=== PATIENT | male | born 1960 | race Caucasian/White ===

== ENCOUNTER 2024-04-22 21:21 | Inpatient (IN) ==
[2024-04-22] MEDS: 0.9 % SODIUM CHLORIDE 1,000 ML IV ONE (21:36)
[2024-04-22 22:17] LABS: Basophils # (Auto) 0.02 K/mcL (0.00-0.30); Basophils % (Auto) 0.2 % (0.0-2.0); Eosinophils # (Auto) 0.03 K/mcL (0.00-0.70); Eosinophils % (Auto) 0.3 % (0.0-7.0); Hematocrit 34.5 % (40.1-51.0); Hemoglobin 11.7 g/dL (13.7-17.5); Lymphocytes # (Auto) 1.44 K/mcL (1.50-4.80); Lymphocytes % (Auto) 14.8 % (15.5-49.0); Mean Cell Volume 97.2 fL (80.0-100.0); Mean Corpuscular HGB Conc 33.9 g/dL (31.0-36.0); Mean Platelet Volume 10.4 fL (8.8-12.5); Monocytes # (Auto) 1.65 K/mcL (0.10-0.90); Monocytes % (Auto) 16.9 % (1.0-12.0); Neutrophils % (Auto) 67.6 % (38.0-78.0); Platelet Count 176 K/mcL (140-440); RBC 3.55 M/mcL (4.63-6.08); WBC 9.8 K/mcL (4.5-11.0)
[2024-04-22 22:20] LABS: ALT/SGPT 8 U/L (<40); AST/SGOT 26 U/L (<40); Albumin 3.4 gm/dL (3.2-5.2); Albumin/Globulin Ratio 1.4 (1.0-2.3); Alkaline Phosphatase 51 U/L (39-117); Bilirubin,Total 0.7 mg/dL (0.1-1.0); Blood Urea Nitrogen 17 mg/dL (8-23); Calcium 8.4 mg/dL (8.6-10.4); Carbon Dioxide 22 mmol/L (22-30); Chloride 99 mmol/L (96-108); Creatine Kinase 848 U/L (24-195); Globulin 2.4 gm/dL (2.2-3.7); Glomerular Filtration Rate 94; Glucose 110 mg/dL (70-105); Potassium 3.6 mmol/L (3.3-5.1); Sodium 134 mmol/L (133-145)
[2024-04-22] MEDS ORDERED: ONDANSETRON 4 MG/2 ML VIAL IV PRN (23:28)
[2024-04-22] MEDS ORDERED: morphine 4 MG/ML VIAL IV PRN (23:28)
[2024-04-22] MEDS: morphine 2 MG/ML VIAL IV ONE (23:42)
[2024-04-22] MEDS: methylPREDNISolone SOD SUCC 125 MG/2 ML VIAL IV ONE (23:43)
[2024-04-23 00:07] LABS: Appearance,Urine Clear (Clear); Bacteria,Urine Rare /hpf (0); Bilirubin,Urine Negative (Negative); Color,Urine Yellow; Glucose,Urine (UA) Negative (Negative); Ketones,Urine Trace mg/dL (Negative); Leukocyte Esterase,Urine Negative /uL (Negative); Nitrate,Urine Negative (Negative); PH,Urine 6.5 (5.0-9.0); Protein,Urine Negative (Negative); Urine Blood Trace-intact ery/mcL (Negative); Urine RBC 2 /hpf (0-3); Urine Squamous Epithelial Cell 6 /hpf (0-4); Urine WBC 3 /hpf (0-4); Urobilinogen,Urine Normal
[2024-04-23 00:24] LABS: Lithium Test < 0.1 mmol/L
[2024-04-23] MEDS: LACTATED RINGERS 1,000 ML IV SCH ×3 (00:25→16:51)
[2024-04-23] MEDS ORDERED: ONDANSETRON 4 MG/2 ML VIAL IV PRN ×2 (01:15→15:01)
[2024-04-23] MEDS ORDERED: ACETAMINOPHEN 325 MG TABLET PO PRN (01:15)
[2024-04-23 06:46] LABS: Basophils # (Auto) 0.02 K/mcL (0.00-0.30); Basophils % (Auto) 0.2 % (0.0-2.0); Eosinophils # (Auto) 0.03 K/mcL (0.00-0.70); Eosinophils % (Auto) 0.3 % (0.0-7.0); Hematocrit 33.7 % (40.1-51.0); Hemoglobin 11.5 g/dL (13.7-17.5); Lymphocytes % (Auto) 12.3 % (15.5-49.0); Mean Corpuscular HGB Conc 34.1 g/dL (31.0-36.0); Mean Platelet Volume 10.6 fL (8.8-12.5); Monocytes # (Auto) 1.45 K/mcL (0.10-0.90); Monocytes % (Auto) 16.2 % (1.0-12.0); Neutrophils % (Auto) 70.9 % (38.0-78.0); Platelet Count 176 K/mcL (140-440); RBC 3.44 M/mcL (4.63-6.08); Red Cell Distribution Width 12.9 % (11.5-14.5)
[2024-04-23 06:51] LABS: ALT/SGPT 13 U/L (<40); AST/SGOT 28 U/L (<40); Albumin 3.3 gm/dL (3.2-5.2); Albumin/Globulin Ratio 1.3 (1.0-2.3); Alkaline Phosphatase 49 U/L (39-117); Bilirubin,Total 0.6 mg/dL (0.1-1.0); Blood Urea Nitrogen 14 mg/dL (8-23); Calcium 8.6 mg/dL (8.6-10.4); Carbon Dioxide 24 mmol/L (22-30); Chloride 101 mmol/L (96-108); Globulin 2.6 gm/dL (2.2-3.7); Glomerular Filtration Rate 94; Glucose 98 mg/dL (70-105); Potassium 3.7 mmol/L (3.3-5.1); Sodium 137 mmol/L (133-145)
[2024-04-23] MEDS: 0.9 % SODIUM CHLORIDE 10 ML SYRINGE IV SCH (07:00)
[2024-04-23] MEDS: DOCUSATE SODIUM 100 MG CAPSULE PO SCH (08:07)
[2024-04-23] MEDS ORDERED: PROPOFOL 200 MG/20 ML VIAL IV ONE (13:40)
[2024-04-23] MEDS ORDERED: KETAMINE 50 MG/ML Syringe IV ONE (13:40)
[2024-04-23] MEDS ORDERED: DEXAMETHASONE 10 MG/ML VIAL ONE (13:41)
[2024-04-23] MEDS ORDERED: ONDANSETRON 4 MG/2 ML VIAL ONE (13:41)
[2024-04-23] MEDS ORDERED: LIDOCAINE 2% PF 5 ML VIAL ONE (13:41)
[2024-04-23] MEDS ORDERED: ceFAZolin 2 GM in DEXTROSE 5% IN WATER 50 ML IV SCH (13:52)
[2024-04-23] MEDS ORDERED: fentaNYL 100 MCG/2 ML VIAL ONE (14:06)
[2024-04-23] MEDS ORDERED: PHENYLephrine 1 MG/10 ML SYRINGE (ANEST) ONE (14:08)
[2024-04-23] MEDS ORDERED: LACTATED RINGERS 250 ML IV PRN (15:01)
[2024-04-23] MEDS ORDERED: diphenhydrAMINE 50 MG/ML VIAL IV PRN (15:01)
[2024-04-23] MEDS ORDERED: NALOXONE HCL 0.4 MG/ML VIAL IV PRN (15:01)
[2024-04-23] MEDS ORDERED: MEPERIDINE 25 MG/ML VIAL IV PRN (15:01)
[2024-04-23] MEDS ORDERED: IPRATROPIUM/ALBUTEROL 3 ML AMPUL.NEB NEB PRN (15:01)
[2024-04-23] MEDS ORDERED: fentaNYL 100 MCG/2 ML VIAL IV PRN (15:01)
[2024-04-23] MEDS ORDERED: HYDROcodone/APAP 5/325MG TABLET PO PRN (15:14)
[2024-04-23] MEDS ORDERED: BENZOCAINE/MENTHOL 1 LOZENGE PO PRN (15:14)
[2024-04-23] MEDS: ACETAMINOPHEN 1,000 MG/100 ML BAG IV ONE (15:56)
[2024-04-23] MEDS: ceFAZolin 2 GM in DEXTROSE 5% IN WATER 50 ML IV SCH (16:52)
[2024-04-23] MEDS: SENNOSIDES 1 TABLET PO SCH (23:00)
[2024-04-23] MEDS: risperiDONE 0.25 MG TABLET PO SCH (23:00)
[2024-04-23] MEDS: ceFAZolin 1 GM VIAL IV SCH (23:09)
[2024-04-23] MEDS: ceFAZolin 1 GM VIAL ONE (23:23)
[2024-04-24 06:42] LABS: Basophils # (Auto) 0 K/mcL (0.00-0.30); Basophils % (Auto) 0 % (0.0-2.0); Eosinophils # (Auto) 0 K/mcL (0.00-0.70); Eosinophils % (Auto) 0 % (0.0-7.0); Hemoglobin 10.2 g/dL (13.7-17.5); Lymphocytes % (Auto) 8.7 % (15.5-49.0); Mean Cell Volume 98.4 fL (80.0-100.0); Mean Platelet Volume 10.9 fL (8.8-12.5); Monocytes # (Auto) 1.53 K/mcL (0.10-0.90); Monocytes % (Auto) 14.8 % (1.0-12.0); Neutrophils % (Auto) 76.3 % (38.0-78.0); Platelet Count 185 K/mcL (140-440); RBC 3.05 M/mcL (4.63-6.08); Red Cell Distribution Width 12.8 % (11.5-14.5); WBC 10.4 K/mcL (4.5-11.0)
[2024-04-24 07:07] LABS: Creatine Kinase 761 U/L (24-195)
[2024-04-24 07:14] LABS: ALT/SGPT 14 U/L (<40); AST/SGOT 24 U/L (<40); Albumin 3.2 gm/dL (3.2-5.2); Albumin/Globulin Ratio 1.3 (1.0-2.3); Alkaline Phosphatase 42 U/L (39-117); Bilirubin,Total 0.4 mg/dL (0.1-1.0); Blood Urea Nitrogen 19 mg/dL (8-23); Calcium 8.6 mg/dL (8.6-10.4); Carbon Dioxide 23 mmol/L (22-30); Chloride 103 mmol/L (96-108); Globulin 2.5 gm/dL (2.2-3.7); Glomerular Filtration Rate 94; Glucose 117 mg/dL (70-105); Potassium 4.1 mmol/L (3.3-5.1); Sodium 140 mmol/L (133-145)
[2024-04-24] MEDS: morphine 4 MG/ML VIAL IV PRN (10:43)
[2024-04-24] MEDS: ENOXAPARIN 40 MG/0.4 ML SYRINGE SQ SCH (10:45)
[2024-04-24] MEDS: LOSARTAN 50 MG TABLET PO SCH (10:46)
[2024-04-24] MEDS: oxyCODONE IR 5 MG TABLET PO PRN (10:46)
[2024-04-24] MEDS: amLODIPine 5 MG TABLET PO SCH (10:46)
[2024-04-24] MEDS: FINASTERIDE 5 MG TABLET PO SCH (10:47)
[2024-04-24] MEDS: Solifenacin 10 mg tablet PO SCH (10:47)
[2024-04-24] MEDS: PRAZOSIN 1 MG CAPSULE PO SCH (10:49)
[2024-04-24] MEDS ORDERED: DIVALPROEX 125 MG CAP.SPRINK PO SCH (21:00)
[2024-04-25] MEDS ORDERED: traZODone HCL 50 MG TABLET PO SCH (09:00)
== END 2024-04-24 15:55 | DRG 481 ==
LOC: ED 21:21 → MEDSUR 04-23 01:10
PROVIDERS: ADMIT Student in an Organized Health Care Education/Training Program; ATTEND Student in an Organized Health Care Education/Training Program